=== PATIENT | female | born 1945 | race Caucasian/White ===

== ENCOUNTER 2016-05-29 16:44 | Inpatient (IN) | payer MEDICARE, MEDICAID ==
--- NOTE | 2016-05-29 17:04 | ED Physician Chart ---
Chief Complaint/HPI - Patient Information Date Seen:: 05/29/16 Time Seen:: 17:00 Chief Complaint:: refusal of care, agitation History of Present Illness:: location: general quality: refusing care, agitation severity: moderate duration: several weeks context: pt with history of psychiatric diagnoses. no pain complaint. pt with refusal of care and agitation. yells while in ER and talking to nurse. no pain complaint. no vomiting. no fever. mod factors: none assoc s/s: none hx from pt. Allergies:: Allergies Allergy/AdvReac Type Severity Reaction Status Date / Time No Known Allergies Allergy Verified 10/27/15 20:27 Historian:: EMS, Other (Dr. Gutierrez, Dr Huff) Review:: Nurse's Note Reviewed, EMS run form Reviewed Review of Systems - Review of Systems General/Constitutional: No fever, No edema Skin: No rash Eyes: No diplopia Neck: No stiffness Pulmonary: No wheezing GI: No vomiting, No diarrhea Neurological: No seizure Past Medical History - Past Medical History Past Medical History: HTN, DM, Thyroid disorder, Other (sleep disorder, anxiety , constipation, ) Family History: None Social History: Non Smoker, No Alcohol, No Drug Use, Single, Care Facility Surgical History: None Psychiatricy History: Schizophrenia Medication: Reviewed Family Medical History - Family Member Father History Unknown: Yes Mother History Unknown: Yes Physical Exam - Physical Examination General/Constitutional: Awake, Well-developed, well-nourished (pt is aggressive to nursing staff, initially refusing to listen to staff. ), Alert, No distress, Non-toxic appearing, Ambulatory Head: Atraumatic Eyes: Lids, conjuctiva normal Skin: Nl inspection, No rash, No skin lesions, No ecchymosis, Well hydrated, No lymphadenopathy ENMT: External ears, nose nl, Nasal exam nl, Lips, teeth, gums nl Neck: Nontender, Full ROM w/o pain, No nuchal rigidity Respiratory: Nl effort/Exclusion, Clear to Auscultation, No Wheeze/Rhonchi/Rales Cardio Vascular: RRR, No murmur, gallop, rubs, NL S1 S2 GI: No tenderness/rebounding/guarding, Normal BS's, Nondistended : No CVA tenderness Extremities: No tenderness or effusion, Full ROM, normal strength in all extremities, No edema, Normal digits & nails Neuro/Psych: DTR's symmetric, Normal sensory exam, Normal motor strength, Judgement/insight normal, Mood normal (agitated mood, angry mood. ), Normal gait , No focal deficits Misc: normal gait, Normal back, No paraspinal tenderness Labs/Radiology/EKG Results - Lab Results Results: Laboratory Tests 05/29/16 21:29 WBC 6.1 RBC 4.46 Hgb 13.1 Hct 38.7 MCV 86.8 MCH 29.3 MCHC Differential 33.7 RDW 12.8 Plt Count 211 MPV 9.9 Neutrophils % 61.8 Lymphocytes % 26.6 Monocytes % 7.9 Eosinophils % 2.7 Basophils % 1.0 Assessment - Assessment General Assessment: pt stable while in ER. ED Septic Shock - . Is Septic Shock (SBP<90, OR Lactate>4 mmol\L) present?: No Reassessment (Disposition) - Reassessment Reassessment:: MDM: stable patient with some yelling at staff and agressive behavior. early this am pt was at facility and was yelling at staff amnd being very abusive and so whs sent here to eval as recommended by PCP> Reassessment Condition:: Unchanged - Diagnosis Diagnosis:: acute psychosis medical clearance for mental health - Patient Disposition Discharge/Transfer:: Acute Care w/in this hosp Admitted to:: [facility] Admitting Medical Physician:: Anastacio Gutierrez Admitting Psych Physician:: Ann Marie Huff Condition at Disposition:: Stable
[2016-05-29] MEDS ORDERED: Haloperidol Lactate 5 mg/mL 1mL Vial IM STA (20:00)
[2016-05-29] MEDS ORDERED: Haloperidol Lactate 5 mg/mL 1mL Vial ONE (20:06)
[2016-05-29 21:53] LABS: % LYMPHOCYTES 26.6 % (20.0-50.0)
[2016-05-29 21:55] LABS: % EOSINOPHILS 2.7 % (0.0-5.0); % MONOCYTES 7.9 % (2.0-10.0); % NEUTROPHILS 61.8 % (40.0-80.0); HEMATOCRIT 38.7 % (35.0-45.0); HEMOGLOBIN 13.1 gm/dL (11.7-16.1); MEAN CELL VOLUME 86.8 fl (81-100); MEAN CORPUSCULAR HEMOGLOBIN 29.3 pg (27.0-31.0); MEAN CORPUSCULAR HGB CONC 33.7 pg (28.0-36.0); MEAN PLATELET VOLUME 9.9 fl; NEUTROPHILE ABSOLUTE 3.7 Th/cmm (1.8-8.0); PLATELET COUNT 211 Th/cmm (150-400); RED BLOOD COUNT 4.46 Mil/cmm (3.80-5.20); RED CELL DISTRIBUTION WIDTH 12.8 % (11.5-20.0); WHITE BLOOD COUNT 6.1 Th/cmm (4.8-10.8)
[2016-05-29 22:16] LABS: ALB/GLOB RATIO 1.1 (1.0-1.8); ALKALINE PHOSPHATASE 76 U/L (34-104); ANION GAP 8.1 (7.0-16.0); BILIRUBIN,TOTAL 0.7 mg/dL (0.3-1.0); BUN - UREA NITROGEN 12 mg/dL (7-25); BUN/CREATININE RATIO 17.1; CALCIUM SERUM 9.2 mg/dL (8.6-10.3); CARBON DIOXIDE 25.3 mEq/L (21.0-31.0); CHLORIDE 106 mEq/L (98-107); CREATININE - SERUM 0.7 mg/dL (0.6-1.2); GLUCOSE 121 mg/dL (70-105); POTASSIUM SERUM 3.4 mEq/L (3.5-5.1); SGOT 19 U/L (13-39); SGPT/ALT 12 U/L (7-52); SODIUM SERUM 136 mEq/L (136-145)
[2016-05-29 22:37] LABS: URINE BILIRUBIN NEGATIVE (NEGATIVE); URINE COLOR YELLOW; URINE GLUCOSE (UA) NEGATIVE (NEGATIVE); URINE KETONE TRACE mg/dL (NEGATIVE)
[2016-05-29 22:38] LABS: URINE BLOOD NEGATIVE (NEGATIVE); URINE PH 5.5; URINE PROTEIN NEGATIVE (NEGATIVE); URINE RBC 0-2 /hpf (0-5); URINE UROBILINOGEN 0.2 E.U./dL (0.2 - 1.0)
[2016-05-29 22:39] LABS: URINE BACTERIA OCCASIONAL /hpf (NONE SEEN); URINE EPITHELIAL CELLS FEW /lpf (FEW)
[2016-05-30] MEDS ORDERED: Maalox 30 mL Cup PO PRN (01:06)
[2016-05-30] MEDS ORDERED: Magnesium Hydroxide (MOM) 30 mL UDC PO PRN (01:06)
[2016-05-30 01:56] VITALS: BP 162/87
[2016-05-30] MEDS: INSULIN ASPART SLIDING SCALE 100 UNITS/ML UNIT SUBQ SCH ×4 (06:41→20:35)
[2016-05-30] MEDS: Levothyroxine 0.075 Mg Tab PO SCH (06:49)
[2016-05-30] MEDS: Multivitamin w/ Minerals Tab PO SCH (08:05)
[2016-05-30] MEDS: NYSTATIN 100000 UNITS/GM POWD TP SCH (08:05)
[2016-05-30] MEDS: Aspirin 81mg Chewable Tab PO SCH (08:05)
[2016-05-30] MEDS: Lactulose 10 Gm/15 mL 30mL UDC PO SCH (08:05)
[2016-05-30] MEDS: risperiDONE 4 mg Tab PO SCH (08:05)
[2016-05-30] MEDS ORDERED: Multivitamin Tab PO SCH (09:00)
--- NOTE | 2016-05-30 12:31 | History & Physical ---
IDENTIFYING INFORMATION: The patient is a 70-year-old female. CHIEF COMPLAINT: The patient was referred because of acting agitated, psychotic. The patient herself was a poor historian, unable to engage in any information. The patient is a known case to me. I have been seeing her. She has a history of psychosis, schizophrenia, depression. PAST PSYCHIATRIC HISTORY: She has a history of multiple prior admissions. MEDICAL HISTORY: Hypertension, diabetes mellitus. ALLERGIES: She has no known drug allergies. MEDICATIONS: The patient has been on Haldol. Risperdal replaced recently. FAMILY AND SOCIAL HISTORY: The patient is single, never , no children. She has been staying at [facility] for the last year. No family information is available. The patient continues to refuse to answer. MENTAL STATUS EXAMINATION: The patient looks disheveled, disorganized, internally preoccupied. She has poor eye contact, is unable to participate in a meaningful conversation, acting paranoid. She has not been sleeping or eating well according to the staff. She was unable to tell me anything about suicide, homicide or hallucination, but obviously she appears to be responding to internal stimuli. I was unable to test her memory because of her psychosis. Her insight and judgment impaired. IMPRESSION: AXIS I: Chronic paranoid schizophrenia with acute exacerbation. MEDICAL DIAGNOSIS: As per medical doctor. Her assets she is accepting ____ poor. INITIAL TREATMENT PLAN: The patient will be continued with medication. We will do group therapy, milieu therapy, individual therapy. ESTIMATED LENGTH OF STAY: 3-7 days. DISCHARGE CRITERIA: Decrease in agitation, psychosis after discharge, outpatient treatment. [facility]# [id number]
[2016-05-31] MEDS: Levothyroxine 0.075 Mg Tab PO SCH (06:36)
[2016-05-31] MEDS: INSULIN ASPART SLIDING SCALE 100 UNITS/ML UNIT SUBQ SCH ×4 (06:36→21:07)
[2016-05-31] MEDS: Aspirin 81mg Chewable Tab PO SCH (14:59)
[2016-05-31] MEDS: Lactulose 10 Gm/15 mL 30mL UDC PO SCH (15:00)
[2016-05-31] MEDS: NYSTATIN 100000 UNITS/GM POWD TP SCH (15:00)
[2016-05-31] MEDS: Multivitamin w/ Minerals Tab PO SCH (15:00)
[2016-05-31] MEDS: risperiDONE 4 mg Tab PO SCH (15:00)
--- NOTE | 2016-05-31 20:51 | Progress Notes ---
Case was discussed with staff of the patient, reviewed records. The patient so far has been refusing to take her medication; however, that is how she behaved in her previous admission, had to be . She continues to be unpredictable and impulsive. She was yelling at me when I went to talk to her. She wanted me to be around. She has been unable to make safe plan for self-care or participate in a meaningful conversation or tell me why she is not taking her medication, and so far, there have been no side effects with the medication, no sedation, no nausea, and no extrapyramidal symptoms. We will continue to work with patient in group therapy, milieu therapy, and adjust medication as needed. JOB# [id number]
--- NOTE | 2016-06-01 00:33 | History & Physical ---
REASON FOR ADMISSION: Psychiatric disorder. HISTORY OF PRESENT ILLNESS: This is a 70-year-old female with underlying history of hypothyroidism, diabetes mellitus, hypertension and hyperlipidemia, who was admitted to [facility] for underlying psychiatric illness by Dr Huff. Dr. Huff ____ patient. At the time of evaluation, the patient seems very confused, no reported medical complaints per nursing staff. The patient has been refused per nursing staff. The patient has been refusing all her treatments. PAST MEDICAL HISTORY: As per HPI. PAST SURGICAL HISTORY: No reports of prior surgical history. FAMILY HISTORY: No reports of significant family history. SOCIAL HISTORY: Lives at a nursing facility. No reported alcohol, tobacco, or street drug use. CURRENT MEDICATIONS: On aspirin, benazepril, docusate, lactulose, Ativan, nystatin, Zocor, Ambien, Glucophage, Risperdal. ALLERGIES: No known drug allergies. REVIEW OF SYSTEMS: Difficult to obtain due to the patient's underlying severe confusion. PHYSICAL EXAMINATION: VITAL SIGNS: Temperature 96.8, pulse 77, respirations 20, blood pressure 162/82, oxygen saturation 97% room air. GENERAL APPEARANCE: The patient does not seem to be in acute distress. CARDIOVASCULAR: S1, S2 normal. LUNGS: CTA bilaterally. ABDOMEN: Soft, nontender. EXTREMITIES: No edema. NEUROLOGIC: Awake, but confused, grossly nonfocal. LABORATORY DATA: Available laboratory data: WBC 6.1, hemoglobin 13.0, hematocrit 38.7. Sodium 130, potassium 3.4, sugar 121. AST ____, ALT 12. TSH 2.78. Urine negative; leukocyte esterase, RPR nonreactive. ASSESSMENT: 1. Acute exacerbation of psychiatric disorders. 2. Diabetes mellitus. 3. Hypertension. 4. Hyperlipidemia. 5. Hypothyroidism. 6. Noncompliance. PLAN: The patient is admitted to Geropsych Unit. Further psych eval and management per Dr. Huff. The patient's medical problem has been addressed. Continue current medications. Medication compliance advised. Blood sugar will be followed. Vital signs will be followed. Thank you, Dr Huff, for allowing me to participate in the care of this patient. The patient is medically stable to participate in the Geropsych Unit. JOB# [id number]
[2016-06-01] MEDS: Levothyroxine 0.075 Mg Tab PO SCH (06:32)
[2016-06-01] MEDS: INSULIN ASPART SLIDING SCALE 100 UNITS/ML UNIT SUBQ SCH ×4 (06:32→20:31)
[2016-06-01] MEDS: Aspirin 81mg Chewable Tab PO SCH (08:03)
[2016-06-01] MEDS: Multivitamin w/ Minerals Tab PO SCH (08:04)
[2016-06-01] MEDS: Lactulose 10 Gm/15 mL 30mL UDC PO SCH (08:04)
[2016-06-01] MEDS: NYSTATIN 100000 UNITS/GM POWD TP SCH (08:05)
[2016-06-01] MEDS: risperiDONE 4 mg Tab PO SCH (08:05)
[2016-06-02] MEDS: INSULIN ASPART SLIDING SCALE 100 UNITS/ML UNIT SUBQ SCH ×4 (06:47→21:48)
[2016-06-02] MEDS: Levothyroxine 0.075 Mg Tab PO SCH (06:48)
[2016-06-02] MEDS ORDERED: Haloperidol Lactate 5 mg/mL 1mL Vial ONE (07:42)
[2016-06-02] MEDS ORDERED: Haloperidol Lactate 5 mg/mL 1mL Vial IM STA (07:43)
[2016-06-02] MEDS: NYSTATIN 100000 UNITS/GM POWD TP SCH (08:01)
[2016-06-02] MEDS: Aspirin 81mg Chewable Tab PO SCH (08:01)
[2016-06-02] MEDS: risperiDONE 4 mg Tab PO SCH (08:01)
[2016-06-02] MEDS: Multivitamin w/ Minerals Tab PO SCH (08:01)
[2016-06-02] MEDS: Lactulose 10 Gm/15 mL 30mL UDC PO SCH (08:01)
--- NOTE | 2016-06-02 12:03 | Progress Notes ---
Case was discussed with staff of the patient. I tried to talk to the patient today. She would not answer me. She turned her face the other way. I tried to explain to her the side effects of her medication and if there is any specific reason why she is not taking her medication or if there is any specific medication she would take, but basically, she just would not respond to any of my questions. She is on Risperdal 4 mg daily. I explained to her the side effects so she would not look at me. So, I am not sure if she comprehended. She is still psychotic, unpredictable, and impulsive. She does not have a conservator. I will continue to persuade her. We may have to the patient if she continues to refuse and we will continue to work with the patient in group therapy, milieu therapy, and adjust medications as needed. JOB# [id number]
--- NOTE | 2016-06-03 02:08 | Progress Notes ---
Case was discussed with staff of the patient, reviewed records. The patient has been refusing her medications. Continues to be unpredictable, impulsive, needing redirection. I talked to her in the presence of the medication nurse, ____ about the reason why she is not taking her medication. She told me she does not need to be on medication and that they make her feel bad. I asked her what are the medication that she would take that would help her feel better and she said she does not need to be on any medication. The patient had to be medicated today because of her aggressive behavior and out of control behavior. Continues to be unpredictable, impulsive, needing redirection, agitated, so I did tell her that ____ restlessness, ____ as well as sedation on increased agitation and in that case if she could get something for side effects and I asked the medication nurse to bring her some ____ about the medication and we will continue to work the patient in group therapy and milieu therapy and adjust medication as needed. JOB# [id number]
[2016-06-03] MEDS: INSULIN ASPART SLIDING SCALE 100 UNITS/ML UNIT SUBQ SCH ×3 (06:44→21:02)
[2016-06-03] MEDS: Levothyroxine 0.075 Mg Tab PO SCH (06:44)
[2016-06-03] MEDS: Aspirin 81mg Chewable Tab PO SCH (08:46)
[2016-06-03] MEDS: Lactulose 10 Gm/15 mL 30mL UDC PO SCH (08:46)
[2016-06-03] MEDS: risperiDONE 4 mg Tab PO SCH (08:47)
[2016-06-03] MEDS: NYSTATIN 100000 UNITS/GM POWD TP SCH (08:47)
[2016-06-03] MEDS: Multivitamin w/ Minerals Tab PO SCH (08:47)
[2016-06-04] MEDS: INSULIN ASPART SLIDING SCALE 100 UNITS/ML UNIT SUBQ SCH ×4 (06:29→21:09)
[2016-06-04] MEDS: Levothyroxine 0.075 Mg Tab PO SCH (06:30)
--- NOTE | 2016-06-04 07:57 | Progress Notes ---
Case was discussed with staff of the patient, reviewed records. The patient continues to refuse medications. When I went to her and talked to her about this, she does not want to see my face. She refused to be on medication. She reports she does not need to be on medication. ____ the medication nurse was with me when I talked to her about the side effects yesterday. She said she ____ paper on side effects, so she also can read it as well, but she refused to take it. She reports she does not need it. Continues to have poor insight. Unable to make safe plan for her self-care. Unpredictable, impulsive, paranoid. So, I will be initiating a ____ the patient. We will check milieu therapy, adjust medication as needed. JOB# [id number]
[2016-06-04] MEDS: Lactulose 10 Gm/15 mL 30mL UDC PO SCH (16:15)
[2016-06-04] MEDS: Aspirin 81mg Chewable Tab PO SCH (16:15)
[2016-06-04] MEDS: Multivitamin w/ Minerals Tab PO SCH (16:15)
[2016-06-04] MEDS: NYSTATIN 100000 UNITS/GM POWD TP SCH (16:15)
[2016-06-04] MEDS: risperiDONE 4 mg Tab PO SCH (16:16)
--- NOTE | 2016-06-05 04:13 | Progress Notes ---
Case discussed with staff of the patient, reviewed records. The patient had a ____ seen today. It was upheld by the automatic edger on the ground of grave disability. The patient continues to be irritable, paranoid. She kicked me out of the room today. When I went to try to talk to her again about medications, but she left the room and I had to follow her. She would not talk to me. I did already talked to her many times about the side effects of medication and if there is any medication she would take, she does not believe that she is mentally ill, does not believe she needs to be on medication. She is unpredictable, impulsive, needing redirection and I did file for ____ and we will continue to work with patient in group therapy, milieu therapy, adjust the medication as needed. JOB# [id number]
[2016-06-05] MEDS: Levothyroxine 0.075 Mg Tab PO SCH (06:33)
[2016-06-05] MEDS: INSULIN ASPART SLIDING SCALE 100 UNITS/ML UNIT SUBQ SCH ×4 (06:33→21:25)
[2016-06-05] MEDS: Aspirin 81mg Chewable Tab PO SCH (09:22)
[2016-06-05] MEDS: Multivitamin w/ Minerals Tab PO SCH (09:23)
[2016-06-05] MEDS: Lactulose 10 Gm/15 mL 30mL UDC PO SCH (09:23)
[2016-06-05] MEDS: risperiDONE 4 mg Tab PO SCH (09:24)
[2016-06-05] MEDS: NYSTATIN 100000 UNITS/GM POWD TP SCH (09:24)
--- NOTE | 2016-06-06 00:06 | Progress Notes ---
Case discussed with staff of the patient, reviewed records. The patient continues to be agitated, tried to talk to her about medication again. She reports she does not need to be on medication that she will not take any medications. She would not tell me what medication she will take. I already discussed with her the side effects, told her what they were in the presence of the medication nurse and they did trying to give her a copy of medication side effects; however, she is still having poor insight. Still unpredictable and impulsive. I did apply for release, but we do not have a date yet. They do not call us back with the date and ____ we will continue to ____ the patient take her medication. We will continue to work with the patient in group therapy, milieu therapy, adjust medication as needed. JOB# [id number]
[2016-06-06] MEDS: Levothyroxine 0.075 Mg Tab PO SCH (07:23)
[2016-06-06] MEDS: INSULIN ASPART SLIDING SCALE 100 UNITS/ML UNIT SUBQ SCH ×4 (07:23→21:02)
[2016-06-06] MEDS: Aspirin 81mg Chewable Tab PO SCH (08:09)
[2016-06-06] MEDS: Lactulose 10 Gm/15 mL 30mL UDC PO SCH (08:10)
[2016-06-06] MEDS: risperiDONE 4 mg Tab PO SCH (08:10)
[2016-06-06] MEDS: Multivitamin w/ Minerals Tab PO SCH (08:10)
[2016-06-06] MEDS: NYSTATIN 100000 UNITS/GM POWD TP SCH (08:10)
[2016-06-06] MEDS ORDERED: Haloperidol Lactate 5 mg/mL 1mL Vial IM ONE (10:59)
[2016-06-06] MEDS ORDERED: Haloperidol Lactate 5 mg/mL 1mL Vial ONE (11:04)
--- NOTE | 2016-06-06 21:25 | General Progress Note ---
Subjective - Review of Systems Service Date: 06/06/16 Subjective: patient doing fine no reported concern Objective - Results Result Diagrams: 05/29/16 21:29 05/29/16 21: Recent Labs: Laboratory Last Values WBC 6.1 Th/cmm (4.8-10.8) 05/29/16 21: RBC 4.46 Mil/cmm (3.80-5.20) 05/29/16 21: Hgb 13.1 gm/dL (11.7-16.1) 05/29/16 21: Hct 38.7 % (35.0-45.0) 05/29/16 21: MCV 86.8 fl (81-100) 05/29/16 21: MCH 29.3 pg (27.0-31.0) 05/29/16: MCHC Differential 33.7 pg (28.0-36.0) 05/29/16: RDW 12.8 % (11.5-20.0) 05/29/16: Plt Count 211 Th/cmm (150-400) 05/29/16 21: MPV 9.9 fl 05/29/16 21: Neutrophils % 61.8 % (40.0-80.0) 05/29/16 21: Lymphocytes % 26.6 % (20.0-50.0) 05/29/16 21: Monocytes % 7.9 % (2.0-10.0) 05/29/16: Eosinophils % 2.7 % (0.0-5.0) 05/29/16: Basophils % 1.0 % (0.0-2.0) 05/29/16 21: Sodium 136 mEq/L (136-145) 05/29/16 21: Potassium 3.4 mEq/L (3.5-5.1) L 05/29/16 21: Chloride 106 mEq/L (98-107) 05/29/16 21: Carbon Dioxide 25.3 mEq/L (21.0-31.0) 05/29/16 21: Anion Gap 8.1 (7.0-16.0) 05/29/16 21: BUN 12 mg/dL (7-25) 05/29/16 21:29 Creatinine 0.7 mg/dL (0.6-1.2) 05/29/16 21:29 Est GFR ( Amer) > 60.0 ml/min 05/29/16 21:29 Est GFR (Non-Af Amer) > 60.0 ml/min 05/29/16 21:29 BUN/Creatinine Ratio 17.1 05/29/16 21:29 Glucose 121 mg/dL (70-105) H 05/29/16 21: POC Glucose 95 MG/DL (70 - 105) 06/03/16 17:21 Calcium 9.2 mg/dL (8.6-10.3) 05/29/16 21: Total Bilirubin 0.7 mg/dL (0.3-1.0) 05/29/16 21:29 AST 19 U/L (13-39) 05/29/16 21: ALT 12 U/L (7-52) 05/29/16 21: Alkaline Phosphatase 76 U/L (34-104) 05/29/16 21:29 Total Protein 6.8 gm/dL (6.0-8.3) 05/29/16 21:29 Albumin 3.6 gm/dL (3.7-5.3) L 05/29/16 21: Globulin 3.2 gm/dL 05/29/16 21: Albumin/Globulin Ratio 1.1 (1.0-1.8) 05/29/16 21:29 TSH 2.78 uIU/ml (0.34-5.60) 05/29/16 21:29 Urine Source CLEAN C 05/29/16 22:10 Urine Color YELLOW 05/29/16 22:10 Urine Clarity CLEAR (CLEAR) 05/29/16 22:10 Urine pH 5.5 05/29/16 22:10 Ur Specific [place] 1.40290 (1.005-1.030) L 05/29/16 22:10 Urine Protein NEGATIVE mg/dL (NEGATIVE) 05/29/16 22:10 Urine Glucose (UA) NEGATIVE mg/dL (NEGATIVE) 05/29/16 22:10 Urine Ketones TRACE mg/dL (NEGATIVE) 05/29/16 22:10 Urine Blood NEGATIVE (NEGATIVE) 05/29/16 22:10 Urine Nitrate NEGATIVE (NEGATIVE) 05/29/16 22:10 Urine Bilirubin NEGATIVE (NEGATIVE) 05/29/16 22:10 Urine Urobilinogen 0.2 E.U./dL (0.2 - 1.0) 05/29/16 22:10 Ur Leukocyte Esterase TRACE (NEGATIVE) H 05/29/16 22:10 Urine RBC 0-2 /hpf (0-5) 05/29/16 22:10 Urine WBC 2-5 /hpf (0-5) 05/29/16 22:10 Ur Epithelial Cells FEW /lpf (FEW) 05/29/16 22:10 Urine Bacteria OCCASIONAL /hpf (NONE SEEN) 05/29/16 22:10 RPR NONREACTIVE (NONREACTIVE) 05/29/16 21:29 - Physical Exam Vitals and I&O: Vital Signs Temp 98 F 06/06/16 14:31 Pulse 61 06/06/16 14:31 Resp 20 06/06/16 14:31 BP 133/59 06/06/16 14:31 Pulse Ox 97 06/06/16 14:31 Intake & Output 06/06/16 06/06/16 06/07/16 06:59 18:59 06:59 Intake Total 0 900 Balance 0 900 Intake: Oral 0 900 Other: # Voids 3 4 # Bowel Movements 0 1 Active Medications: Current Medications Acetaminophen (Tylenol) 650 mg PO Q4HR PRN PRN Reason: Pain Stop: 07/29/16 01:05 Al Hydrox/Mg Hydrox/Simethicone (Maalox) 30 ml PO Q4HR PRN PRN Reason: GI DISTRESS Stop: 07/29/16 01:05 Aspirin (Aspirin Chewable) 81 mg PO DAILY [facility] Stop: 07/29/16 08:59 Last Admin: 06/06/16 08:09 Dose: Not Given Benazepril HCl (Lotensin) 20 mg PO DAILY [facility] Stop: 07/29/16 08:59 Last Admin: 06/06/16 08:10 Dose: Not Given Docusate Sodium (Colace) 100 mg PO DAILY [facility] Stop: 07/29/16 08:59 Last Admin: 06/06/16 08:10 Dose: Not Given Insulin Aspart (Novolog Insulin Sliding Scale) 0 units SUBQ ACHS ROBBI PRN Reason: Protocol Stop: 07/29/16 07:29 Last Admin: 01/25/17 21:02 Dose: Not Given Lactulose (Cephulac) 20 gm PO DAILY [facility] Stop: 07/29/16 08:59 Last Admin: 06/06/16 08:10 Dose: Not Given Levothyroxine Sodium (Synthroid) 0.075 mg PO QDAC [facility] Stop: 07/29/16 07:29 Last Admin: 06/06/16 07:23 Dose: Not Given Lorazepam (Ativan) 0.5 mg PO Q4HR PRN; Protocol PRN Reason: Anxiety Stop: 06/29/16 01:05 Metformin HCl (Glucophage) 500 mg PO BIDWM [facility] Stop: 07/29/16 07:59 Last Admin: 06/06/16 17:17 Dose: Not Given Mupirocin (Bactroban Oint) 1 appl NS BID [facility] Stop: 06/07/16 16:59 Last Admin: 06/06/16 16:00 Dose: Not Given Risperidone (Risperdal) 4 mg PO DAILY ROBBI PRN Reason: Protocol Stop: 07/29/16 08:59 Last Admin: 06/06/16 08:10 Dose: Not Given Simvastatin (Zocor) 40 mg PO HS ROBBI PRN Reason: Protocol Stop: 07/29/16 20:59 Last Admin: 06/06/16 21:02 Dose: Not Given Zolpidem Tartrate (Ambien) 5 mg PO HS PRN PRN Reason: Insomnia Stop: 07/29/16 01:05 Cardiovascular: Normal S1, Normal S2 Lungs: Clear to auscultation Abdomen: Soft, no Tender Assessment/Plan - Problem List Patient Problems: All Active Problems Diabetes (Acute) E11.9 HTN (hypertension) (Acute) I10 Psychosis (Acute) F29 - Assessment Assessment: DM II HTN PSYCH DISODER - Plan Plan: Medically stable Continue current treatment Psych managment per psych
--- NOTE | 2016-06-07 02:59 | Progress Notes ---
Case was discussed with staff of the patient, reviewed records. The patient continues to be unpredictable and impulsive. When I talked to her today about the medications that she is not taken and she asked me to get the hell out of here, refused to talk to me. She is refusing her medication in general. We are still waiting for ____. So far we did not get anyone and the staff had to give her emergency medication because of her unpredictable out of control behavior. We will continue to work with the patient in group therapy, milieu therapy and adjust her medication as needed. JOB# [id number]
[2016-06-07] MEDS: INSULIN ASPART SLIDING SCALE 100 UNITS/ML UNIT SUBQ SCH ×4 (08:09→21:00)
[2016-06-07] MEDS: Levothyroxine 0.075 Mg Tab PO SCH (08:09)
[2016-06-07] MEDS: Lactulose 10 Gm/15 mL 30mL UDC PO SCH (08:09)
[2016-06-07] MEDS: Multivitamin w/ Minerals Tab PO SCH (08:09)
[2016-06-07] MEDS: Aspirin 81mg Chewable Tab PO SCH (08:09)
[2016-06-07] MEDS: risperiDONE 4 mg Tab PO SCH (08:10)
[2016-06-07] MEDS: Haloperidol Lactate 5 mg/mL 1mL Vial IM PRN (17:02)
--- NOTE | 2016-06-08 01:48 | Progress Notes ---
Case was discussed with staff of patient, reviewed records. The patient continues to be aggressive, irritable, slammed the door this morning. When I talked to her, she kicked me out, she is asking to leave the room to get the hell out of there, ____I was unable to even carry on a conversation with her because of her aggressive, out of control behavior. She is still psychotic, delusional, unable to make safe plan for her self-care. No side effects with the medication. As far as she is not taking her medication, ____ have a Riese hearing this morning and we will continue outpatient group therapy, milieu therapy, adjust medication as needed. JOB# [id number]
[2016-06-08] MEDS: INSULIN ASPART SLIDING SCALE 100 UNITS/ML UNIT SUBQ SCH ×4 (06:48→20:50)
[2016-06-08] MEDS: Levothyroxine 0.075 Mg Tab PO SCH (06:49)
[2016-06-08] MEDS: Multivitamin w/ Minerals Tab PO SCH (09:00)
[2016-06-08] MEDS: Aspirin 81mg Chewable Tab PO SCH (09:00)
[2016-06-08] MEDS: Lactulose 10 Gm/15 mL 30mL UDC PO SCH (09:00)
[2016-06-08] MEDS: Haloperidol Lactate 5 mg/mL 1mL Vial IM PRN ×2 (09:52→17:17)
--- NOTE | 2016-06-09 02:29 | Progress Notes ---
Case discussed with staff of patient, reviewed records. The patient has been getting injections. She was ____ yesterday. She continues to be ____, easily agitated, irritable, smelly apparently she wiped her bottom with the blanket, needing redirection. I will be increasing Haldol to 4 mg twice a day to be given intramuscularly if she refuses p.o. and we will continue to work with patient in group therapy, milieu therapy, adjust the medication as needed. JOB# [id number]
[2016-06-09] MEDS: INSULIN ASPART SLIDING SCALE 100 UNITS/ML UNIT SUBQ SCH ×4 (06:52→20:30)
[2016-06-09] MEDS: Levothyroxine 0.075 Mg Tab PO SCH (06:53)
[2016-06-09] MEDS: Lactulose 10 Gm/15 mL 30mL UDC PO SCH (08:16)
[2016-06-09] MEDS: Multivitamin w/ Minerals Tab PO SCH (08:16)
[2016-06-09] MEDS: Aspirin 81mg Chewable Tab PO SCH (08:16)
[2016-06-09] MEDS: Haloperidol Lactate 5 mg/mL 1mL Vial IM PRN ×2 (09:21→17:21)
--- NOTE | 2016-06-10 00:03 | Progress Notes ---
SUBJECTIVE: The patient was seen, chart reviewed, and discussed with staff. The patient is currently in the hospital, agitated, psychotic, and known to Dr. Hfuf. The patient is with history of schizophrenia and depression. On [id number], the patient is refusing to speak with me stating, "Don't speak with me. You are not my doctor. Get out." The patient is still noted to be symptomatic. Dr. Huff is noting that the patient remains easily agitated, irritable, not taking care of her ADLs, smearing feces on clothes. The patient is refusing medications intermittently. ASSESSMENT AND PLAN: The patient remains symptomatic, still with psychotic behaviors, agitated, and irritable. PLAN: Continue to titrate medications. Monitor closely for any overt side effects. JOB# [id number]
[2016-06-10] MEDS: Levothyroxine 0.075 Mg Tab PO SCH (06:53)
[2016-06-10] MEDS: INSULIN ASPART SLIDING SCALE 100 UNITS/ML UNIT SUBQ SCH ×4 (06:53→21:20)
[2016-06-10] MEDS: Lactulose 10 Gm/15 mL 30mL UDC PO SCH (09:12)
[2016-06-10] MEDS: Aspirin 81mg Chewable Tab PO SCH (09:12)
[2016-06-10] MEDS: Multivitamin w/ Minerals Tab PO SCH (09:12)
[2016-06-10] MEDS: Haloperidol Lactate 5 mg/mL 1mL Vial IM PRN ×2 (09:28→17:20)
--- NOTE | 2016-06-11 03:32 | Progress Notes ---
SUBJECTIVE: The patient seen, chart reviewed and discussed with staff. The patient is currently in the hospital due to agitation and psychosis, history of schizophrenia and depression. On [id number], the patient is refusing to talk to me, responding to internal stimuli, talking to herself, telling me to "get out." She remains easily agitated, irritable and still psychotic. Medications were reviewed. Labs were reviewed. No overt side effects noted. She remains isolative and withdrawn. ASSESSMENT: The patient remains symptomatic, responding to internal stimuli, psychotic, agitated and irritable. PLAN: Continue to monitor. Continue to encourage medication compliance. JOB# [id number]
[2016-06-11] MEDS: INSULIN ASPART SLIDING SCALE 100 UNITS/ML UNIT SUBQ SCH ×4 (07:05→21:45)
[2016-06-11] MEDS: Levothyroxine 0.075 Mg Tab PO SCH (07:05)
[2016-06-11] MEDS: Aspirin 81mg Chewable Tab PO SCH (09:38)
[2016-06-11] MEDS: Lactulose 10 Gm/15 mL 30mL UDC PO SCH (09:39)
[2016-06-11] MEDS: Multivitamin w/ Minerals Tab PO SCH (09:40)
--- NOTE | 2016-06-12 00:24 | Progress Notes ---
Case was discussed with staff of the patient. The patient is a bit calmer now since she was ____. She has been taking her medication. She is still internally preoccupied, stays to herself. Continues to be however, unpredictable, impulsive, very poor insight, unable to carry on a conversation and make safe plan for self-care. I will be initiating Haldol Decanoate on the patient because of her history of noncompliance and so far, no side effects with the medication, no sedation, no nausea and we will continue to work with the patient in group therapy, milieu therapy, adjust the medication as needed. JOB# [id number]
[2016-06-12] MEDS: INSULIN ASPART SLIDING SCALE 100 UNITS/ML UNIT SUBQ SCH ×4 (07:09→20:34)
[2016-06-12] MEDS: Levothyroxine 0.075 Mg Tab PO SCH (07:09)
[2016-06-12] MEDS: Lactulose 10 Gm/15 mL 30mL UDC PO SCH (09:00)
[2016-06-12] MEDS: Aspirin 81mg Chewable Tab PO SCH (09:31)
[2016-06-12] MEDS: Multivitamin w/ Minerals Tab PO SCH (09:32)
--- NOTE | 2016-06-12 20:39 | General Progress Note ---
Subjective - Review of Systems Service Date: 06/12/16 Subjective: patient doing fine no new concern reported Objective - Results Result Diagrams: 05/29/16 21:29 05/29/16 21: Recent Labs: Laboratory Last Values WBC 6.1 Th/cmm (4.8-10.8) 05/29/16 21: RBC 4.46 Mil/cmm (3.80-5.20) 05/29/16 21: Hgb 13.1 gm/dL (11.7-16.1) 05/29/16 21: Hct 38.7 % (35.0-45.0) 05/29/16 21: MCV 86.8 fl (81-100) 05/29/16 21: MCH 29.3 pg (27.0-31.0) 05/29/16: MCHC Differential 33.7 pg (28.0-36.0) 05/29/16: RDW 12.8 % (11.5-20.0) 05/29/16: Plt Count 211 Th/cmm (150-400) 05/29/16 21: MPV 9.9 fl 05/29/16 21: Neutrophils % 61.8 % (40.0-80.0) 05/29/16 21: Lymphocytes % 26.6 % (20.0-50.0) 05/29/16 21: Monocytes % 7.9 % (2.0-10.0) 05/29/16: Eosinophils % 2.7 % (0.0-5.0) 05/29/16: Basophils % 1.0 % (0.0-2.0) 05/29/16 21: Sodium 136 mEq/L (136-145) 05/29/16 21: Potassium 3.4 mEq/L (3.5-5.1) L 05/29/16: Chloride 106 mEq/L (98-107) 05/29/16 21: Carbon Dioxide 25.3 mEq/L (21.0-31.0) 05/29/16: Anion Gap 8.1 (7.0-16.0) 05/29/16 21: BUN 12 mg/dL (7-25) 05/29/16 21:29 Creatinine 0.7 mg/dL (0.6-1.2) 05/29/16 21:29 Est GFR ( Amer) > 60.0 ml/min 05/29/16 21:29 Est GFR (Non-Af Amer) > 60.0 ml/min 05/29/16 21:29 BUN/Creatinine Ratio 17.1 05/29/16 21:29 Glucose 121 mg/dL (70-105) H 05/29/16 21:29 POC Glucose 174 MG/DL (70 - 105) H 06/12/16 20:06 Calcium 9.2 mg/dL (8.6-10.3) 05/29/16 21:29 Total Bilirubin 0.7 mg/dL (0.3-1.0) 05/29/16 21:29 AST 19 U/L (13-39) 05/29/16 21:29 ALT 12 U/L (7-52) 05/29/16 21:29 Alkaline Phosphatase 76 U/L (34-104) 05/29/16 21:29 Total Protein 6.8 gm/dL (6.0-8.3) 05/29/16 21:29 Albumin 3.6 gm/dL (3.7-5.3) L 05/29/16 21:29 Globulin 3.2 gm/dL 05/29/16 21:29 Albumin/Globulin Ratio 1.1 (1.0-1.8) 05/29/16 21:29 TSH 2.78 uIU/ml (0.34-5.60) 05/29/16 21:29 Urine Source CLEAN C 05/29/16 22:10 Urine Color YELLOW 05/29/16 22:10 Urine Clarity CLEAR (CLEAR) 05/29/16 22:10 Urine pH 5.5 05/29/16 22:10 Ur Specific [place] 1.10670 (1.005-1.030) L 05/29/16 22:10 Urine Protein NEGATIVE mg/dL (NEGATIVE) 05/29/16 22:10 Urine Glucose (UA) NEGATIVE mg/dL (NEGATIVE) 05/29/16 22:10 Urine Ketones TRACE mg/dL (NEGATIVE) 05/29/16 22:10 Urine Blood NEGATIVE (NEGATIVE) 05/29/16 22:10 Urine Nitrate NEGATIVE (NEGATIVE) 05/29/16 22:10 Urine Bilirubin NEGATIVE (NEGATIVE) 05/29/16 22:10 Urine Urobilinogen 0.2 E.U./dL (0.2 - 1.0) 05/29/16 22:10 Ur Leukocyte Esterase TRACE (NEGATIVE) H 05/29/16 22:10 Urine RBC 0-2 /hpf (0-5) 05/29/16 22:10 Urine WBC 2-5 /hpf (0-5) 05/29/16 22:10 Ur Epithelial Cells FEW /lpf (FEW) 05/29/16 22:10 Urine Bacteria OCCASIONAL /hpf (NONE SEEN) 05/29/16 22:10 RPR NONREACTIVE (NONREACTIVE) 05/29/16 21:29 - Physical Exam Vitals and I&O: Vital Signs Temp 98.3 F 06/12/16 20:15 Pulse 73 06/12/16 20:15 Resp 18 06/12/16 20:15 BP 142/78 06/12/16 20:15 Pulse Ox 97 06/12/16 20:15 Intake & Output 06/12/16 06/12/16 06/13/16 06:59 18:59 06:59 Intake Total 120 1100 240 Balance 120 1100 240 Intake: Oral 120 1100 240 Other: # Voids 1 4 1 # Bowel Movements 0 1 Active Medications: Current Medications Acetaminophen (Tylenol) 650 mg PO Q4HR PRN PRN Reason: Pain Stop: 07/29/16 01:05 Al Hydrox/Mg Hydrox/Simethicone (Maalox) 30 ml PO Q4HR PRN PRN Reason: GI DISTRESS Stop: 07/29/16 01:05 Aspirin (Aspirin Chewable) 81 mg PO DAILY RBOBI Stop: 07/29/16 08:59 Last Admin: 06/12/16 09:31 Dose: 81 mg Benazepril HCl (Lotensin) 20 mg PO DAILY ROBBI Stop: 07/29/16 08:59 Last Admin: 06/12/16 09:32 Dose: 20 mg Docusate Sodium (Colace) 100 mg PO DAILY ROBBI Stop: 07/29/16 08:59 Last Admin: 06/12/16 09:31 Dose: 100 mg Haloperidol (Haldol) 4 mg PO BID ROBBI PRN Reason: Protocol Stop: 08/07/16 16:59 Last Admin: 06/12/16 16:24 Dose: 4 mg Haloperidol Decanoate (Haldol Dec) 25 mg IM QMONTH ROBBI PRN Reason: Protocol Stop: 08/10/16 13:59 Last Admin: 06/11/16 13:52 Dose: 25 mg Haloperidol Lactate (Haldol) 4 mg IM BID PRN PRN Reason: Agitation Stop: 08/06/16 16:08 Last Admin: 06/10/16 17:20 Dose: 4 mg Insulin Aspart (Novolog Insulin Sliding Scale) 0 units SUBQ ACHS ROBBI PRN Reason: Protocol Stop: 07/29/16 07:29 Last Admin: 06/12/16 17:18 Dose: Not Given Lactulose (Cephulac) 20 gm PO DAILY ROBBI Stop: 07/29/16 08:59 Last Admin: 06/12/16 09:00 Dose: 20 gm Levothyroxine Sodium (Synthroid) 0.075 mg PO QDAC ROBBI Stop: 07/29/16 07:29 Last Admin: 06/12/16 07:09 Dose: Not Given Lorazepam (Ativan) 0.5 mg PO Q4HR PRN; Protocol PRN Reason: Anxiety Stop: 06/29/16 01:05 Metformin HCl (Glucophage) 500 mg PO BIDWM ROBBI Stop: 07/29/16 07:59 Last Admin: 06/12/16 17:24 Dose: 500 mg Simvastatin (Zocor) 40 mg PO HS ROBBI PRN Reason: Protocol Stop: 07/29/16 20:59 Last Admin: 06/11/16 21:01 Dose: 40 mg Zolpidem Tartrate (Ambien) 5 mg PO HS PRN PRN Reason: Insomnia Stop: 07/29/16 01:05 Cardiovascular: Normal S1, Normal S2 Lungs: Clear to auscultation Abdomen: Soft, no Tender Assessment/Plan - Problem List Patient Problems: All Active Problems Diabetes (Acute) E11.9 HTN (hypertension) (Acute) I10 Psychosis (Acute) F29 - Assessment Assessment: DM II HTN PSYCH DISODER - Plan Plan: Medically stable Continue current treatment Psych managment per psych
--- NOTE | 2016-06-13 02:50 | Progress Notes ---
Case was discussed with staff of the patient, reviewed records. The patient continues to be irritable and angry when I went to her room today. She asked me to leave. She says she does not like to see me. She continues to have poor insight, unpredictable and impulsive, needing redirection. I did give her the Haldol Decanoate yesterday and so far no side effects with the medication, no sedation, no nausea and no extrapyramidal symptoms. We will continue to work with the patient in group therapy, milieu therapy and adjust medication as needed. JOB# [id number]
[2016-06-13] MEDS: Levothyroxine 0.075 Mg Tab PO SCH (06:38)
[2016-06-13] MEDS: INSULIN ASPART SLIDING SCALE 100 UNITS/ML UNIT SUBQ SCH ×4 (06:39→20:54)
[2016-06-13] MEDS: Multivitamin w/ Minerals Tab PO SCH (08:16)
[2016-06-13] MEDS: Lactulose 10 Gm/15 mL 30mL UDC PO SCH (08:18)
[2016-06-13] MEDS: Aspirin 81mg Chewable Tab PO SCH (08:18)
--- NOTE | 2016-06-14 02:21 | Progress Notes ---
Case was discussed with staff of the patient, reviewed records. The patient continues to be irritable; however, she did get the Haldol Decanoate yesterday. She continues to isolate herself. Continues to be unable to make safe plan for her self-care or participate in meaningful conversation. She is sleeping, eating well and feeding herself. No side effects with the medication, no sedation, no nausea and no extrapyramidal symptoms. We will continue to work with the patient in group therapy, milieu therapy, adjust the medication as needed. She does have positive MRSA screen, was started on Bactroban and urinalysis showed trace of leukocytic esterase. TSH is within normal range. She has low potassium, high blood sugar and low albumin. The rest of the chemistry panel within normal range. CBC within normal range. I will be deferring decisions on those to the medical doctor, Dr. Schreiber and we will continue working the patient in group therapy, milieu therapy and adjust medication as needed. JOB# [id number]
[2016-06-14] MEDS: INSULIN ASPART SLIDING SCALE 100 UNITS/ML UNIT SUBQ SCH ×4 (06:36→21:19)
[2016-06-14] MEDS: Levothyroxine 0.075 Mg Tab PO SCH (06:36)
[2016-06-14] MEDS: Lactulose 10 Gm/15 mL 30mL UDC PO SCH (08:59)
[2016-06-14] MEDS: Aspirin 81mg Chewable Tab PO SCH (08:59)
[2016-06-14] MEDS: Multivitamin w/ Minerals Tab PO SCH (08:59)
[2016-06-14] MEDS: Haloperidol Lactate 5 mg/mL 1mL Vial IM PRN (09:07)
--- NOTE | 2016-06-15 02:16 | Progress Notes ---
Case was discussed with staff of the patient, reviewed records. The patient continues to be on Haldol. She has to be medicated, ____ well. She refuses medications as she is ____. She continues to be somewhat hostile, unpredictable, impulsive and needing redirection. I did initiate her Haldol Decanoate and so far no side effects with the medication. No sedation, no nausea and no extrapyramidal symptoms and she is still unpredictable, impulsive and hostile. We will continue to work with the patient in group therapy, milieu therapy and adjust medications as needed. JOB# [id number]
[2016-06-15] MEDS: Levothyroxine 0.075 Mg Tab PO SCH (06:52)
[2016-06-15] MEDS: INSULIN ASPART SLIDING SCALE 100 UNITS/ML UNIT SUBQ SCH ×4 (06:53→20:49)
[2016-06-15] MEDS: Aspirin 81mg Chewable Tab PO SCH (08:42)
[2016-06-15] MEDS: Multivitamin w/ Minerals Tab PO SCH (08:43)
[2016-06-15] MEDS: Lactulose 10 Gm/15 mL 30mL UDC PO SCH (08:43)
--- NOTE | 2016-06-15 20:24 | Progress Notes ---
Case was discussed with staff of the patient. The patient continues to be irritable and hostile. Continues to need redirection. Continues to have poor insight. Unable to make safe plan for self-care. She has been . Unable to respond to redirection well. She is paranoid. No side effects with the medication, no sedation, no nausea, and we will continue to work with the patient in group therapy, milieu therapy, and adjust the medication as needed. JOB# [id number]
[2016-06-16] MEDS: Levothyroxine 0.075 Mg Tab PO SCH (06:38)
[2016-06-16] MEDS: INSULIN ASPART SLIDING SCALE 100 UNITS/ML UNIT SUBQ SCH ×4 (06:39→20:06)
[2016-06-16] MEDS: Aspirin 81mg Chewable Tab PO SCH (09:02)
[2016-06-16] MEDS: Multivitamin w/ Minerals Tab PO SCH (09:02)
[2016-06-16] MEDS: Lactulose 10 Gm/15 mL 30mL UDC PO SCH (09:05)
--- NOTE | 2016-06-17 05:00 | Progress Notes ---
Dr. Kirk is covering for Dr. Huff. SUBJECTIVE: Chart reviewed and the patient interviewed. Also, discussed the patient's condition with the staff and reviewed records and labs. The patient continued to be isolative and withdrawn and does not want to leave her room. The patient also is sitting on the edge of the bed and does not want to get out or to follow any of staff directions. The patient also is severely prejudiced and she is refusing to deal with any of the staff that is ____ and openly making remarks that are prejudice. The patient also has been paranoid and has been in angry and in irritable mood. The patient also has been calling people that are ____ names. The patient was placed on 30 days' hold yesterday because of her irritability and paranoia. Otherwise, the patient still can be dangerous to others with her paranoia and irritability. ASSESSMENT: The patient is still psychotic. TREATMENT PLAN: We will continue monitoring her behavior and her condition closely. Also, we will increase Haldol to 7.5 mg twice a day. Hopefully, the patient will comply with taking meds. Also, we will continue to work on her irritability and her anger and we will continue to follow up closely. JOB# [id number]
[2016-06-17] MEDS: INSULIN ASPART SLIDING SCALE 100 UNITS/ML UNIT SUBQ SCH ×4 (06:36→20:09)
[2016-06-17] MEDS: Levothyroxine 0.075 Mg Tab PO SCH (06:51)
[2016-06-17] MEDS: Aspirin 81mg Chewable Tab PO SCH (09:22)
[2016-06-17] MEDS: Lactulose 10 Gm/15 mL 30mL UDC PO SCH (09:23)
[2016-06-17] MEDS: Multivitamin w/ Minerals Tab PO SCH (09:23)
--- NOTE | 2016-06-18 01:36 | Progress Notes ---
SUBJECTIVE: Chart reviewed and the patient interviewed. Also discussed the patient's condition with the staff and reviewed records and labs. The patient continued to show the same behavior like yesterday and she still is sitting on the edge of her bed and is angry and is suspicious. The patient also is still prejudice and has ____ language and uncooperative with non- staff. The patient also is still refusing to get out of her room. She also refusing medications and would not talk ____ about taking medications. She started yelling and screaming and was unable to give me any coherent reasons for why she is refusing medications. She also was becoming more agitated. ASSESSMENT: The patient is still psychotic. TREATMENT PLAN: We will continue to monitor her behavior and her condition closely. Also, continue to work on her compliance towards medications as well as discharge plans. JOB# [id number]
[2016-06-18] MEDS: INSULIN ASPART SLIDING SCALE 100 UNITS/ML UNIT SUBQ SCH ×2 (06:43→12:03)
[2016-06-18] MEDS: Levothyroxine 0.075 Mg Tab PO SCH (06:44)
[2016-06-18] MEDS: Lactulose 10 Gm/15 mL 30mL UDC PO SCH (09:22)
[2016-06-18] MEDS: Multivitamin w/ Minerals Tab PO SCH (09:23)
[2016-06-18] MEDS: Aspirin 81mg Chewable Tab PO SCH (09:23)
--- NOTE | 2016-06-18 19:25 | Discharge Summary ---
IDENTIFYING INFORMATION: The patient is a 71-year-old female. CHIEF COMPLAINT: Referred from [place] because of agitated behavior, psychosis. The patient was a poor historian, unable to engage in any conversation. She is a well known patient. We have been seeing her at [place]. She suffers with schizophrenia, depression with a hp multiple prior admissions and she has a history of being ____ before. She has a history of diabetes mellitus and hypertension. COURSE IN THE HOSPITAL: The patient was started back on her medication, Risperdal. She was continued with the same dose, which was 4 mg daily; however, the patient continued to refuse her medications, so ____ started her on Haldol 2 mg twice a day that was increased over the course of her stay to 7.5 mg twice a day and last increased by Dr. Kirk also given Haldol decanoate injection on 06/11/2016. The patient also was continued with her other medication, which was aspirin, Lotensin and she was given Haldol intramuscular 4 mg twice a day, if she refuses p.o. medication, insulin, also lactulose, levothyroxine, multivitamin, simvastatin, and metformin. The patient progressively got better. She started taking her medication on her own. So, we felt she could be discharged to a lesser level of care. She was not acting anyway dangerous or out of control. So we felt she could be managed at [facility]. FINAL DIAGNOSIS: AXIS I: Chronic paranoid schizophrenia with acute exacerbation. MEDICAL DIAGNOSES: Hypertension, diabetes mellitus. The patient will be going back to [place]. I will follow up with the patient there. The patient will follow up with primary care physician there. EXPECTED OUTCOME: Stable if the patient complies. JOB# [id number]
== END 2016-06-18 16:00 | DRG 885 ==
LOC: ER 16:44 → GERO 05-30 00:20
PROVIDERS: ADMIT Psychiatry & Neurology Psychiatry; ATTEND Psychiatry & Neurology Psychiatry
DX: F20.0 Paranoid schizophrenia (principal); E11.9 Type 2 diabetes mellitus without complications; I10 Essential (primary) hypertension; F41.9 Anxiety disorder, unspecified; F29 Unspecified psychosis not due to a substance or known physiological condition; E03.9 Hypothyroidism, unspecified; E78.5 Hyperlipidemia, unspecified; Z79.82 Long term (current) use of aspirin; Z91.14 Patient's other noncompliance with medication regimen
CPT/HCPCS: 36415-UA; 80053-TC; 81001-TC; 82948-90; 84443-TC; 85025-TC; 86592-TC; 93005; J1200; J1630; J1631; J1815; J2060; Z7610

== ENCOUNTER 2016-12-10 12:46 | Inpatient (IN) | payer MEDICARE, MEDICAID ==
--- NOTE | 2016-12-10 13:12 | ED Physician Chart ---
Chief Complaint/HPI - Patient Information Date Seen:: 12/10/16 Time Seen:: 13:00 Chief Complaint:: PSYCHOSIS History of Present Illness:: THIS IS A 71 YO FEMALE SENT HERE FROM THE HALFWAY FOR A PSYCH EVALUATION AND TREATMENT. THE PATIENT IS NOT COOPERATIVE, NOT ANSWERING QUESTIONS AND CONFUSED AT TIMES. SHE IS DIABETIC WITH HYPOTHYROIDISM AND ELEVATED LIPIDS. SHE REFUSES ALL HER TREATMENTS. Allergies:: Allergies Allergy/AdvReac Type Severity Reaction Status Date / Time No Known Allergies Allergy Verified 10/27/15 20:27 Vitals:: Vital Signs - 8 hr 12/10/16 12:55 Temp 98.1 F HR 79 RR 18 BP 145/73 O2 Sat % 96 Historian:: Medical Records Review:: Nurse's Note Reviewed, Transfer documents Reviewed Review of Systems - Review of Systems General/Constitutional: No fever, No chills, No weight loss, No weakness, No diaphoresis, No edema, No loss of appetite, Other (SHE REFUSES TO ANSWER ANY QUESTIONS.) Skin: No skin lesions, No rash, No bruising Head: No headache, No light-headedness Eyes: No loss of vision, No pain, No diplopia ENT: No earache, No nasal drainage, No sore throat, No tinnitus Neck: No neck pain, No swelling, No thyromegaly, No stiffness, No mass noted Cardio Vascular: No chest pain, No palpitations, No PND, No orthopnea, No edema Pulmonary: No SOB, No cough, No sputum, No wheezing GI: No nausea, No vomiting, No diarrhea, No pain, No melena, No hematochezia, No constipation, No hematemesis G/U: No dysuria, No frequency, No hematuria Musculoskeletal: No bone or joint pain, No back pain, No muscle pain Endocrine: No polyuria, No polydipsia Psychiatric: No prior psych history, No depression, No anxiety, No suicidal ideation Hematopoietic: No bruising, No lymphadenopathy Allergic/Immuno: No urticaria, No angioedema Neurological: No syncope, No focal symptoms, No weakness, No paresthesia, No headache, No seizure, No dizziness, No confusion, No vertigo Past Medical History - Past Medical History Past Medical History: HTN, DM, Thyroid disorder, Dementia Family History: None Social History: Non Smoker, No Alcohol, No Drug Use, Care Facility Surgical History: None Psychiatricy History: Schizophrenia, Bipolar Medication: Reviewed Family Medical History - Family Member Father History Unknown: Yes Ethnicity: Unknown Living Status: Unknown Hx Family Cancer: (Unknown) Hx Family Coronary Artery Disease: (Unknown) Hx Family Congestive Heart Failure: (Unknown) Hx Family Hypertension: (Unknown) Hx Family Stroke: (Unknown) Hx Family Diabetes: (Unknown) Hx Family Seizures: (Unknown) Hx Family Dementia: (Unknown) Hx Family AIDS: (Unknown) Hx Family COPD: (Unknown) Hx Family Hepatitis: (Unknown) Hx Family Psychiatric Problems: (Unknown) Hx Family Tuberculosis: (Unknown) Mother History Unknown: Yes Ethnicity: Unknown Living Status: Unknown Hx Family Cancer: (Unknown) Hx Family Coronary Artery Disease: (Unknown) Hx Family Congestive Heart Failure: (Unknown) Hx Family Hypertension: (Unknown) Hx Family Stroke: (Unknown) Hx Family Diabetes: (Unknown) Hx Family Seizures: (Unknown) Hx Family Dementia: (Unknown) Hx Family AIDS: (Unknown) Hx Family COPD: (Unknown) Hx Family Hepatitis: (Unknown) Hx Family Psychiatric Problems: (Unknown) Hx Family Tuberculosis: (Unknown) Physical Exam - Physical Examination General/Constitutional: Awake, Well-developed, well-nourished, Alert, No distress, GCS 15, Non-toxic appearing, Ambulatory Other Gen/Cons comments:: REFUSE TO COOPERATE Head: Atraumatic Eyes: Lids, conjuctiva normal, PERRL, EOMI Skin: Nl inspection, No rash, No skin lesions, No ecchymosis, Well hydrated, No lymphadenopathy ENMT: External ears, nose nl, Nasal exam nl, Lips, teeth, gums nl Neck: Nontender, Full ROM w/o pain, No JVD, No nuchal rigidity, No bruit, No mass, No stridor Respiratory: Nl effort/Exclusion, Clear to Auscultation, No Wheeze/Rhonchi/Rales Cardio Vascular: RRR, No murmur, gallop, rubs, NL S1 S2 GI: No tenderness/rebounding/guarding, No organomegaly, No hernia, Normal BS's, Nondistended, No mass/bruits, No McBurney tenderness : No CVA tenderness Extremities: No tenderness or effusion, Full ROM, normal strength in all extremities, No edema, Normal digits & nails Neuro/Psych: Alert/oriented, DTR's symmetric, Normal sensory exam, Normal motor strength, Normal gait, No focal deficits Other Neuro/Psych comments:: DEPRESSED MOOD Misc: normal gait, Normal back, No paraspinal tenderness Labs/Radiology/EKG Results - Lab Results Results: Abnormal Lab Results 12/10/16 12/10/16 13:00 13:00 WBC 6.5 RBC 4.56 Hgb 14.1 Hct 42.3 MCV 92.7 MCH 30.9 MCHC Differential 33.3 RDW 12.8 Plt Count 252 MPV 8.1 Neutrophils % 74.1 Lymphocytes % 15.4 L Monocytes % 8.0 Eosinophils % 2.5 Basophils % 0.0 Sodium 135 L Potassium 3.8 Chloride 101 Carbon Dioxide 29.5 Anion Gap 8.3 BUN 23 Creatinine 0.8 Est GFR ( Amer) > 60.0 Est GFR (Non-Af Amer) > 60.0 BUN/Creatinine Ratio 28.8 Glucose 134 H Calcium 9.7 Total Bilirubin 0.4 AST 16 ALT 14 Alkaline Phosphatase 89 Total Protein 7.4 Albumin 4.2 Globulin 3.2 Albumin/Globulin Ratio 1.3 - Radiology Results Results: chest x-ray = nad - EKG Interpretations EKG Time:: 12:56 Rate & Rhythm: 74 SINUS [place]: LEFT Assessment - Assessment General Assessment: psychos ED Septic Shock - . Is Septic Shock (SBP<90, OR Lactate>4 mmol\L) present?: No - <6hrs of presentation: Vital Signs: Vital Signs - 8 hr 12/10/16 12:55 Temp 98.1 F HR 79 RR 18 BP 145/73 O2 Sat % 96 Reassessment (Disposition) - Reassessment Reassessment Condition:: Unchanged - Diagnosis Diagnosis:: psychosis - Aftercare/Follow up Instructions Notes:: THIS PATIENT IS CLEARED FOR PSYCHOSIS - Patient Disposition Discharge/Transfer:: Acute Care w/in this hosp Admitting Medical Physician:: Smith Gutierrez Admitting Psych Physician:: Ann Marie Huff Condition at Disposition:: Unchanged ED Discharge Plan - Patient Disposition Admit/Discharge/Transfer: Acute Care w/in this hosp Condition at Disposition: Unchanged Instructions: Psychosis
[2016-12-10 13:13] LABS: % EOSINOPHILS 2.5 % (0.0-5.0); % LYMPHOCYTES 15.4 % (20.0-50.0); % NEUTROPHILS 74.1 % (40.0-80.0); HEMATOCRIT 42.3 % (35.0-45.0); HEMOGLOBIN 14.1 gm/dL (11.7-16.1); MEAN CELL VOLUME 92.7 fl (81-100); MEAN CORPUSCULAR HEMOGLOBIN 30.9 pg (27.0-31.0); MEAN CORPUSCULAR HGB CONC 33.3 pg (28.0-36.0); MEAN PLATELET VOLUME 8.1 fl; NEUTROPHILE ABSOLUTE 4.8 Th/cmm (1.8-8.0); PLATELET COUNT 252 Th/cmm (150-400); RED BLOOD COUNT 4.56 Mil/cmm (3.80-5.20); RED CELL DISTRIBUTION WIDTH 12.8 % (11.5-20.0); WHITE BLOOD COUNT 6.5 Th/cmm (4.8-10.8)
[2016-12-10 13:32] LABS: ALB/GLOB RATIO 1.3 (1.0-1.8); ALKALINE PHOSPHATASE 89 U/L (34-104); ANION GAP 8.3 (7.0-16.0); BILIRUBIN,TOTAL 0.4 mg/dL (0.3-1.0); BUN - UREA NITROGEN 23 mg/dL (7-25); BUN/CREATININE RATIO 28.8; CALCIUM SERUM 9.7 mg/dL (8.6-10.3); CARBON DIOXIDE 29.5 mEq/L (21.0-31.0); CHLORIDE 101 mEq/L (98-107); CREATININE - SERUM 0.8 mg/dL (0.6-1.2); GLUCOSE 134 mg/dL (70-105); POTASSIUM SERUM 3.8 mEq/L (3.5-5.1); SGOT 16 U/L (13-39); SGPT/ALT 14 U/L (7-52); SODIUM SERUM 135 mEq/L (136-145)
--- NOTE | 2016-12-10 15:03 | Psychosocial Evaluation ---
DATE OF SERVICE: 12/10/2016 IDENTIFYING INFORMATION: The patient is a 71-year-old female. CHIEF COMPLAINT: No answer. HISTORY OF PRESENT ILLNESS: The patient was sent from [place] as the patient has been acting out, refusing her medication, agitated, hard to redirect. She almost hit the nurse in the Emergency Room. She has been unpredictable, impulsive. When I talked to her, she was not ____ give me any answer. PAST PSYCHIATRIC HISTORY: The patient ____ multiple admission for similar reason. She has been ____ many times in the past. MEDICAL HISTORY: Refer to the medical doctor. MEDICATIONS: The patient was on Haldol Decanoate and oral Haldol. ALLERGIES: She has no known drug allergies. FAMILY AND SOCIAL HISTORY: Refer to old records. The patient is unable to give information. MENTAL STATUS EXAMINATION: The patient is appropriately dressed, not well groomed. Her affect is constricted. Her thoughts are concrete and fragmented and unable to engage in any meaningful conversation. She has been unable to give information regarding sleep or appetite. Unable to participate in ____. Unable to answer question about hallucination, but she appears to be responding to internal stimuli. Very poor insight. Unable to contract with safety or make safe plan for self-care. Unable to test memory and ____ answer questions regarding suicide, homicide or hallucinations. No information regarding her sleep or appetite. Her insight and judgment is impaired. IMPRESSION: AXIS I: Chronic paranoid schizophrenia. MEDICAL DIAGNOSES: Deferred to the medical doctor. Her assets, she is accepting treatment. Negative poor coping skills. INITIAL TREATMENT PLAN: The patient will be started back on Haldol, do group therapy, milieu therapy, individual therapy. ESTIMATED LENGTH OF STAY: 3-7 days. DISCHARGE CRITERIA: ____ agitation, psychosis, after discharge ____. JOB# [id number]
[2016-12-10 15:17] VITALS: BP 150/76
[2016-12-10] MEDS ORDERED: Magnesium Hydroxide (MOM) 30 mL UDC PO PRN (15:37)
--- NOTE | 2016-12-10 15:40 | Diagnostic Imaging Report ---
Portable chest x-ray History: Shortness of breath Allowing for portable technique the heart size is normal. No focal pulmonary parenchymal processes. No hilar or mediastinal abnormalities. Scoliosis and degenerative changes seen to the spine. Impression: No acute abnormalities.
[2016-12-10] MEDS: INSULIN ASPART SLIDING SCALE 100 UNITS/ML UNIT SUBQ SCH ×2 (17:48→21:57)
[2016-12-11] MEDS: Levothyroxine 0.075 Mg Tab PO SCH (06:30)
[2016-12-11] MEDS: INSULIN ASPART SLIDING SCALE 100 UNITS/ML UNIT SUBQ SCH ×4 (06:30→20:23)
[2016-12-11] MEDS: Aspirin 81mg Chewable Tab PO SCH (08:34)
[2016-12-11] MEDS: Multivitamin w/ Minerals Tab PO SCH (08:35)
--- NOTE | 2016-12-11 21:20 | History & Physical ---
ADMIT DATE: 12/10/2016 REASON FOR ADMISSION: Psychiatric disorder. HISTORY OF PRESENT ILLNESS: This is a 71-year-old female with underlying history of hypertension, diabetes, hypothyroidism, hyperlipidemia, mental health disorders admitted to the [facility] for evaluation of underlying psychiatric illnesses by Dr. Huff. Dr. Huff requested medical H and P on this patient. At the time of evaluation the patient was awake, but very confused, did not communicate with me at all. PAST MEDICAL HISTORY: Per HPI. PAST SURGICAL HISTORY: None reported. SOCIAL HISTORY: [facility]. No reported alcohol, tobacco or street drug use. CURRENT MEDICATIONS: As per medication reconciliation. ALLERGIES: No drug allergies reported. REVIEW OF SYSTEMS: Unobtainable due to the patient is poorly communicating. PHYSICAL EXAMINATION: VITAL SIGNS: Temperature 97.8, pulse 70, respirations 20, blood pressure 129/70, oxygen 96% on room air. Pain scale 0/10. Physical exam, this patient refused. ASSESSMENT: 1. Mental health disorder. 2. Hypertension. 3. Diabetes mellitus. 4. Hyperlipidemia. 5. Hypothyroidism. PLAN: Psych evaluation and management per psychiatrist. Continue the patient on aspirin, Lotensin, insulin sliding scale, metformin, Synthroid, simvastatin. Fall precaution Patient is medically stable to participate in activity at [facility] unit. Thank you, Dr. Huff, for allowing me to participate in the care of this patient. JOB# [id number] NICKI
--- NOTE | 2016-12-11 22:52 | Progress Notes ---
DATE: 12/11/2016 Case was discussed with staff of the patient, reviewed records. The patient was acting today like catatonic. She is standing, would not sit down, would not eat, would not answer any of my questions, still unpredictable, impulsive, unable to make safe plan for self-care. She has been refusing Accu-Cheks and refusing to take medication; however, I did order the Haldol Decanoate yesterday as she did take it before and I have also initiated oral Haldol. So far I am not sure if she will be compliant with it. If not, then we will have to I believe that the patient is hard to tell about any side effect . We will continue to work with the patient in group therapy, milieu therapy, and adjust the medication as needed. JOB# [id number]
--- NOTE | 2016-12-11 23:31 | Admit Criteria Form ---
Admit Criteria Forms - Admit Criteria Diagnosis: PSYCHIATRIC DISORDERS (Place 'X' for any and all applicable criteria): Ongoing inpatient care may be needed for 1 or more of the following(1)(2)(3)(4)( 6)(7)(8): [ ]I. Danger to self or others not manageable at lower level of care. [ ]II. Grave disability (eg, inability to perform self care necessary at lower level of care) [ ]III. Agitation or inappropriate behavior interfering with care for primary condition (eg, attempting to discontinue lines or drains prematurely, unable to cooperate with respiratory care) [X ]IV. Severe disability or disorder indicated by ALL of the following: [X ]a) Severe behavioral health disorder-related symptoms or condition indicated by 1 or more of the following: [ ]i) Severe problem with cognition, memory, judgment, or impulse control [X ]ii) Severe clinical manifestations (eg, hallucinations , delusions, other acute psychotic symptoms, jess, extreme agitation or anxiety) [X ]b) Patient management at lower level of care is not feasible until acute intervention or modification is initiated. Extended stay beyond goal length of stay for the primary condition may be needed until ALLof the following are present(1)(2)(3)(4)(7)52)(23): [ ]a) Danger to self or others is absent or manageable at lower level of care [ ]b) Behavior crisis management, including physical or chemical restraints, is required and is not available at a lower level of care. [ ]c) Behavioral symptoms (e.g., agitation, somnolence, inappropriate behavior) are present, and are not manageable at a lower level of care. [ ]d) Patient cannot understand follow-up treatment and crisis plan. [ ]e) Provider and supports are sufficiently available at lower level of care. [ ]f) Patient can participate (e.g., verify absence of plan for harm) and is in needed of monitoring. The original [facility] content created by [facility] has been revised. The portions of the content which have been revised are identified through the use of italic text or in bold, and [facility] has neither reviewed nor approved the modified material. All other unmodified content is copyright [facility]. Please see references footnoted in the original [facility] edition 2017 Admit Criteria Met?: Yes
[2016-12-12] MEDS: Levothyroxine 0.075 Mg Tab PO SCH (06:35)
[2016-12-12] MEDS: INSULIN ASPART SLIDING SCALE 100 UNITS/ML UNIT SUBQ SCH ×4 (06:35→20:25)
[2016-12-12] MEDS: Multivitamin w/ Minerals Tab PO SCH (10:00)
[2016-12-12] MEDS: Aspirin 81mg Chewable Tab PO SCH (10:00)
--- NOTE | 2016-12-12 11:27 | Progress Notes ---
DATE: 12/12/2016 SUBJECTIVE: Case was discussed with staff of the patient, reviewed records. The patient continues to refuse medications. She is isolating herself. When I approach her to ask her why she is not taking medication and asked if there are any side effects, what medication she will take, she said that there are other things that she can do other than take medication, which is using certain beverages and food, but she would not tell me what they were, and I advised her that she is also diabetic and she needs to be on medication because of her high blood sugar and that she needs to be on medication. I asked her what medication she would take and listed to her all the medications that could be taken, she said "none of them." She continues to be delusional, paranoid, continues to believe we are trying to harm her with medication. She is unpredictable, impulsive, gets easily agitated. She is refusing lab work, refusing Accu-Cheks, refusing medication. I will be initiating a Riese and a 5250 hold on her and , we will continue to work with the patient in group therapy, milieu therapy, adjust medication as needed. She had an MRSA screen that was isolated and TSH within normal range. CBC was with low lymphocyte, the rest within normal range. Chemistry panel within normal range, low sodium at 135 and high blood sugar 134, the rest within normal range. We will continue to work with the patient in group therapy, milieu therapy, adjust the medication as needed. JOB# [id number]
[2016-12-13] MEDS: INSULIN ASPART SLIDING SCALE 100 UNITS/ML UNIT SUBQ SCH ×4 (06:48→21:16)
[2016-12-13] MEDS: Levothyroxine 0.075 Mg Tab PO SCH (06:49)
[2016-12-13] MEDS: Multivitamin w/ Minerals Tab PO SCH (08:10)
[2016-12-13] MEDS: Aspirin 81mg Chewable Tab PO SCH (08:10)
--- NOTE | 2016-12-13 21:09 | Progress Notes ---
DATE: 12/13/2016 Case was discussed with staff of the patient, reviewed records. The patient continues to refuse medication, refuse Accu-Chek. The patient did get her lab work upon admission. Continues to be unpredictable, impulsive, and needing redirection. Continues to have poor insight. Unable to make safe plan for self-care. When I talked to her today, she would not answer any of my questions. When I talked to her about medication why she is not taking it, if there is any problem, , she would not answer any of my questions at all, so we are pursuing a Riese hearing, waiting for the scheduling, and we will continue to work with the patient in group therapy, milieu therapy, and adjust medication as needed. JOB# [id number]
[2016-12-14] MEDS: Levothyroxine 0.075 Mg Tab PO SCH (06:34)
[2016-12-14] MEDS: INSULIN ASPART SLIDING SCALE 100 UNITS/ML UNIT SUBQ SCH ×4 (06:34→21:16)
[2016-12-14] MEDS: Multivitamin w/ Minerals Tab PO SCH (09:36)
[2016-12-14] MEDS: Aspirin 81mg Chewable Tab PO SCH ×2 (09:37→18:01)
--- NOTE | 2016-12-14 20:32 | Progress Notes ---
DATE: 12/14/2016 SUBJECTIVE: Case was discussed with staff of the patient, reviewed records. The patient continues to refuse to take medication; however, she did have a shower today, which is some progress, but she is still refusing medications on the ground of grave disability. Continues to be unpredictable, impulsive, needing redirection. Continues to have poor insight. When I talked to her about why she is not taking her medication, she said "I will never take any of these," so she would not give me any alternative or tell me why she is not taking them. We will continue to work with the patient in group therapy, milieu therapy, adjust medication as needed. A Riese will be scheduled soon with the patient. JOB# [id number]
[2016-12-15] MEDS: INSULIN ASPART SLIDING SCALE 100 UNITS/ML UNIT SUBQ SCH ×4 (07:03→21:16)
[2016-12-15] MEDS: Levothyroxine 0.075 Mg Tab PO SCH (07:04)
[2016-12-15] MEDS: Aspirin 81mg Chewable Tab PO SCH (10:21)
[2016-12-15] MEDS: Multivitamin w/ Minerals Tab PO SCH (10:21)
--- NOTE | 2016-12-15 10:27 | Progress Notes ---
DATE: 12/15/2016 SUBJECTIVE: The patient seen, chart reviewed, discussed with staff. Coming in from [place]. Acting out, refusing her medications, agitated, hard to redirect, trying to hit staff. On [id number], the patient not answering me whatsoever, refusing interview. Dr. Huff is seeing this patient. Continuing to note that she refuses to take her medications, still refusal of care, grave disability, unpredictable, impulsive, refusing to take medications without any rationale. ASSESSMENT: The patient remains symptomatic, refusing care, impulsive, unpredictable. PLAN: We will continue to monitor. We will continue to encourage medication compliance, but the patient remains symptomatic and not safe for discharge at this time. [facility]# [id number]
--- NOTE | 2016-12-15 15:06 | General Progress Note ---
Subjective - Review of Systems Service Date: 12/14/16 Subjective: Late entry: Patient doing ok no reported concern per nursing staff Objective - Results Result Diagrams: 12/10/16 13:00 12/10/16 13:00 Recent Labs: Laboratory Last Values WBC 6.5 Th/cmm (4.8-10.8) 12/10/16 13:00 RBC 4.56 Mil/cmm (3.80-5.20) 12/10/16 13:00 Hgb 14.1 gm/dL (11.7-16.1) 12/10/16 13:00 Hct 42.3 % (35.0-45.0) 12/10/16 13:00 MCV 92.7 fl (81-100) 12/10/16 13:00 MCH 30.9 pg (27.0-31.0) 12/10/16 13:00 MCHC Differential 33.3 pg (28.0-36.0) 12/10/16 13:00 RDW 12.8 % (11.5-20.0) 12/10/16 13:00 Plt Count 252 Th/cmm (150-400) 12/10/16 13:00 MPV 8.1 fl 12/10/16 13:00 Neutrophils % 74.1 % (40.0-80.0) 12/10/16 13:00 Lymphocytes % 15.4 % (20.0-50.0) L 12/10/16 13:00 Monocytes % 8.0 % (2.0-10.0) 12/10/16 13:00 Eosinophils % 2.5 % (0.0-5.0) 12/10/16 13:00 Basophils % 0.0 % (0.0-2.0) 12/10/16 13:00 Sodium 135 mEq/L (136-145) L 12/10/16 13:00 Potassium 3.8 mEq/L (3.5-5.1) 12/10/16 13:00 Chloride 101 mEq/L (98-107) 12/10/16 13:00 Carbon Dioxide 29.5 mEq/L (21.0-31.0) 12/10/16 13:00 Anion Gap 8.3 (7.0-16.0) 12/10/16 13:00 BUN 23 mg/dL (7-25) 12/10/16 13:00 Creatinine 0.8 mg/dL (0.6-1.2) 12/10/16 13:00 Est GFR ( Amer) > 60.0 ml/min (>90) 12/10/16 13:00 Est GFR (Non-Af Amer) > 60.0 ml/min 12/10/16 13:00 BUN/Creatinine Ratio 28.8 12/10/16 13:00 Glucose 134 mg/dL (70-105) H 12/10/16 13:00 POC Glucose 97 MG/DL (70 - 105) 12/15/16 12:06 Calcium 9.7 mg/dL (8.6-10.3) 12/10/16 13:00 Total Bilirubin 0.4 mg/dL (0.3-1.0) 12/10/16 13:00 AST 16 U/L (13-39) 12/10/16 13:00 ALT 14 U/L (7-52) 12/10/16 13:00 Alkaline Phosphatase 89 U/L (34-104) 12/10/16 13:00 Troponin I 0.01 ng/mL (0.01-0.05) 12/10/16 13:00 Total Protein 7.4 gm/dL (6.0-8.3) 12/10/16 13:00 Albumin 4.2 gm/dL (3.7-5.3) 12/10/16 13:00 Globulin 3.2 gm/dL 12/10/16 13:00 Albumin/Globulin Ratio 1.3 (1.0-1.8) 12/10/16 13:00 TSH 2.76 uIU/ml (0.34-5.60) 12/10/16 13:00 RPR NONREACTIVE (NONREACTIVE) 12/10/16 13:00 - Physical Exam Vitals and I&O: Vital Signs Temp 96.6 F 12/15/16 06:16 Pulse 55 12/15/16 10:40 Resp 18 12/15/16 10:40 BP 124/50 12/15/16 10:22 Pulse Ox 99 12/15/16 06:16 Intake & Output 12/14/16 12/15/16 12/15/16 18:59 06:59 18:59 Intake Total 1200 Balance 1200 Intake: Oral 1200 Other: # Bowel Movements 1 Stool Characteristics Soft Formed Active Medications: Current Medications Acetaminophen (Tylenol) 650 mg PO Q4HR PRN PRN Reason: Pain Stop: 02/08/17 15:33 Ascorbic Acid (Vitamin C) 500 mg PO DAILY [facility] Stop: 02/09/17 08:59 Last Admin: 12/15/16 10:21 Dose: 500 mg Aspirin (Aspirin Chewable) 81 mg PO DAILY [facility] Stop: 02/09/17 08:59 Last Admin: 12/15/16 10:21 Dose: 81 mg Benazepril HCl (Lotensin) 20 mg PO DAILY [facility] Stop: 02/09/17 08:59 Last Admin: 12/15/16 10:22 Dose: Not Given Docusate Sodium (Colace) 100 mg PO BID [facility] Stop: 02/08/17 16:59 Last Admin: 12/15/16 12:15 Dose: Not Given Haloperidol (Haldol) 2 mg PO BID [facility] PRN Reason: Protocol Stop: 02/09/17 16:59 Last Admin: 12/15/16 10:20 Dose: 2 mg Haloperidol Decanoate (Haldol Dec) 25 mg IM [id number] [facility] PRN Reason: Protocol Stop: 02/09/17 15:59 Last Admin: 12/11/16 18:03 Dose: Not Given Insulin Aspart (Novolog Insulin Sliding Scale) 0 units SUBQ ACHS [facility] PRN Reason: Protocol Stop: 02/08/17 16:29 Last Admin: 12/15/16 12:15 Dose: Not Given Levothyroxine Sodium (Synthroid) 0.075 mg PO QDAC [facility] Stop: 02/09/17 07:29 Last Admin: 12/15/16 07:04 Dose: Not Given Lorazepam (Ativan) 0.5 mg PO Q6HR PRN; Protocol PRN Reason: Anxiety Stop: 02/08/17 15:41 Magnesium Hydroxide (Milk Of Magnesia) 30 ml PO DAILY PRN PRN Reason: Constipation Stop: 02/08/17 15:36 Metformin HCl (Glucophage) 500 mg PO BIDWM [facility] Stop: 02/08/17 17:59 Last Admin: 12/15/16 10:38 Dose: Not Given Mupirocin (Bactroban Oint) 1 appl NS BID [facility] Stop: 12/19/16 08:59 Last Admin: 12/15/16 10:23 Dose: 1 appl Simvastatin (Zocor) 40 mg PO HS [facility] PRN Reason: Protocol Stop: 02/08/17 20:59 Last Admin: 12/14/16 21:16 Dose: Not Given Zolpidem Tartrate (Ambien) 5 mg PO HS PRN PRN Reason: Insomnia Stop: 02/08/17 15:45 Other physical findings: Patient refused to be examined Assessment/Plan - Problem List Patient Problems: All Active Problems INCREASED AGITATION AND UNCOOPERATIVE (Acute) Diabetes (Acute) E11.9 HTN (hypertension) (Acute) I10 Psychosis (Acute) F29 - Assessment Assessment: DM II HTN HYPERLIPIDEMIA HYPOTHYROIDISM PSYCH DISORDER - Plan Plan: Medical problems are stable Continue current meds Psych follow up Nutritional Asmnt/Malnutr-PDOC - Dietary Evaluation Malnutrition Findings (Please click <Entered> for more info): Nutritional Asmnt/Malnutrition Start: 12/13/16 12: 35 Text: Status: Complete Freq: Document 12/13/16 12:35 GSUN (Rec: 12/13/16 12:52 GSUN [email or web address]) Nutritional Asmnt/Malnutrition Patient General Information Nutritional Screening Moderate Risk Screening Diagnosis Chronic paranoid schizophrenia Pertinent Medical Hx/Surgical Hx HTN, DM, hypothyroidism, hyperlipidemia Subjective Information 71 year old female from SNF. Pt was awake, selectively responded. Pt denied being diabetic. Pt reported usually good appetite. RD noted pt's food preferences. Pt did not provide other meaningful responses. Pt apepared overweight, no muscle/fat wasting noted. Avg PO intake 57% of past 7 meals, meeting 75% lower end kcal needs. RD enocurgaed PO intake, pt stared blankly back. Current Diet Order/ Nutrition Support HAILEE, CCHO, low fat, low choelsterol Pertinent Medications Vitamin C, Colace, Haldol, Novolog, MOM, Synthroid, Glucophage Pertinent Labs 12/10: glucose 134H 8/3: no new labs, no accuchecks. Dx DM Nutritional Hx/Data Height 1.6 m Height (Calculated Centimeters) 160.0 Current Weight (lbs) 66.996 kg Weight (Calculated Kilograms) 67.0 Weight (Calculated Grams) 87027.6 Davy Body Weight 115 Weight Status Overweight GI Symptoms Cultural/Ethnic/Taoism Belief Pt likes apples and teresita. " The main diet stops me from dying," RD asked pt several times to eleborate, pt did not . Skin Integrity/Comment: Christopher 19. Coccyx redness. Current %PO Fair (50-74%) Estimated Nutritional Goals Calories/Kcals/Kg IBW 115lb/52.3kg Kcals Calculated 1308-1569kcal (25-30kcal/kg) Protein Calculated 52g (1g/kg) Fluid: ml 1308-1569ml (1ml/kcal) Nutritional Problem 1. Problem Problem Inadequate oral food beverage intake related to Etiology unknwon etiology, likely cognition aeb Signs/Symptoms: PO itnake meeting 75% of lower end of kcal needs Intervention/Recommendation Comments 1. Continue with current diet order. Avg PO intake meeting 75% of lwoer end kcal needs. RD encouraged PO intake. Nursing staff to supervise and encourage PO intake. 2. Recommend glucose/ accuchecks, dx DM. Expected Outcomes/Goals Expected Outcomes/Goals 1. PO intake to meet at least 75% of estimated nutritional needs.
[2016-12-16] MEDS: INSULIN ASPART SLIDING SCALE 100 UNITS/ML UNIT SUBQ SCH ×2 (06:44→21:00)
[2016-12-16] MEDS: Levothyroxine 0.075 Mg Tab PO SCH (06:45)
[2016-12-16] MEDS: Aspirin 81mg Chewable Tab PO SCH (10:22)
[2016-12-16] MEDS: Multivitamin w/ Minerals Tab PO SCH (10:23)
--- NOTE | 2016-12-16 19:57 | Progress Notes ---
DATE: 12/16/2016 SUBJECTIVE: The patient was seen, chart reviewed, discussed with staff. The patient remains confused, disoriented, disorganized, crying at times for no reason and acting out, refusing medications at times. On [id number], the patient is refusing interview, refusing to answer me, not wanting to speak with me at all. Staff noting she remains disoriented, still cries at times, labile. ASSESSMENT: The patient remains symptomatic, poorly oriented, refusing care, refusing treatment, impulsive, and unpredictable, not safe for a lower level of care, and oppositional towards interview this morning. PLAN: We will continue to monitor. Continue to encourage med compliance. Given the severity of the patient's ongoing symptoms, she is not safe for discharge at this time. JOB# [id number]
[2016-12-17] MEDS: INSULIN ASPART SLIDING SCALE 100 UNITS/ML UNIT SUBQ SCH ×4 (06:41→21:01)
[2016-12-17] MEDS: Levothyroxine 0.075 Mg Tab PO SCH (06:43)
[2016-12-17] MEDS: Multivitamin w/ Minerals Tab PO SCH (13:43)
[2016-12-17] MEDS: Aspirin 81mg Chewable Tab PO SCH (13:43)
[2016-12-17] MEDS: Haloperidol Lactate 5 mg/mL 1mL Vial IM PRN (16:54)
--- NOTE | 2016-12-17 23:20 | Progress Notes ---
DATE: 12/17/2016 Case was discussed with staff of the patient, reviewed records, had Riese hearing today. The patient ____ under grave disability. The patient continues to be selectively mute, refusing all medication. Continues to be unpredictable, impulsive, paranoid. Continues to be unable to make safe plan for self-care. Sleeping well. She needs to be prompted to eat. She is noncompliant with the medication. I will initiating Haldol to be given IM, if she refuses p.o. and we will continue to work with the patient in group therapy, milieu therapy, and adjust medication as needed. JOB# [id number]
[2016-12-18] MEDS: INSULIN ASPART SLIDING SCALE 100 UNITS/ML UNIT SUBQ SCH ×4 (06:43→21:07)
[2016-12-18] MEDS: Levothyroxine 0.075 Mg Tab PO SCH (06:44)
[2016-12-18] MEDS: Aspirin 81mg Chewable Tab PO SCH (08:03)
[2016-12-18] MEDS: Multivitamin w/ Minerals Tab PO SCH (08:03)
--- NOTE | 2016-12-18 23:30 | Progress Notes ---
DATE: 12/18/2016 Case was discussed with staff of the patient. The patient was ____ yesterday. So, now she is getting medications by injection for her own medication. She continues to be internally preoccupied. Continues to need direction. Unable to participate in meaningful conversation or make safe plan for self-care, unpredictable, impulsive, very poor insight. Sleeping well and needs to be prompted to eat, and we will continue to work with the patient in group therapy, milieu therapy, and adjust as needed. JOB# [id number]
[2016-12-19] MEDS: INSULIN ASPART SLIDING SCALE 100 UNITS/ML UNIT SUBQ SCH ×3 (06:39→20:21)
[2016-12-19] MEDS: Levothyroxine 0.075 Mg Tab PO SCH (06:39)
[2016-12-19] MEDS: Aspirin 81mg Chewable Tab PO SCH (10:01)
[2016-12-19] MEDS: Multivitamin w/ Minerals Tab PO SCH (10:03)
--- NOTE | 2016-12-19 22:06 | Progress Notes ---
DATE: 12/19/2016 Case was discussed with staff of the patient, reviewed records. The patient took her medication yesterday by mouth. She is still internally preoccupied with not participating in a meaningful conversation, unable to tell me why she was not taking her medications. ____ now she seems to have shown some progress. She is sleeping better, eating better. No side effects with the medication, no sedation, no nausea, no side effects, no extrapyramidal symptoms and we will continue to work with the patient in group therapy, milieu therapy, adjust the medication as needed. JOB# [id number]
[2016-12-20] MEDS: Levothyroxine 0.075 Mg Tab PO SCH (06:41)
[2016-12-20] MEDS: INSULIN ASPART SLIDING SCALE 100 UNITS/ML UNIT SUBQ SCH ×4 (07:18→20:37)
[2016-12-20] MEDS: Aspirin 81mg Chewable Tab PO SCH (09:34)
[2016-12-20] MEDS: Multivitamin w/ Minerals Tab PO SCH (09:35)
--- NOTE | 2016-12-21 01:22 | Progress Notes ---
DATE: 12/20/2016 SUBJECTIVE: Case was discussed with staff of the patient, reviewed records. The patient continues to isolate herself. Continues to be unpredictable, impulsive. Per staff report, she is taking her medication more often. No side effects, no sedation, no nausea, no extrapyramidal symptoms. We will continue to work with the patient in group therapy, milieu therapy, and adjust medication as needed. JOB# [id number]
[2016-12-21] MEDS: INSULIN ASPART SLIDING SCALE 100 UNITS/ML UNIT SUBQ SCH ×4 (06:38→21:08)
[2016-12-21] MEDS: Levothyroxine 0.075 Mg Tab PO SCH (06:38)
[2016-12-21] MEDS: Aspirin 81mg Chewable Tab PO SCH (08:57)
[2016-12-21] MEDS: Multivitamin w/ Minerals Tab PO SCH (08:58)
[2016-12-21] MEDS: Haloperidol Lactate 5 mg/mL 1mL Vial IM PRN (09:14)
--- NOTE | 2016-12-22 00:01 | Progress Notes ---
DATE: 12/21/2016 Case was discussed with staff of the patient. The patient has been more compliant with the medication; however, she still ____ not answering my question. Unable to participate in ____, make safe plan for self-care. Continues to have poor insight. No side effects with the medication, no sedation, no nausea, no extrapyramidal symptoms. We will continue the patient in group therapy, milieu therapy, adjust medication as needed. JOB# [id number]
[2016-12-22] MEDS: Levothyroxine 0.075 Mg Tab PO SCH (06:37)
[2016-12-22] MEDS: INSULIN ASPART SLIDING SCALE 100 UNITS/ML UNIT SUBQ SCH ×4 (06:38→21:03)
[2016-12-22] MEDS: Multivitamin w/ Minerals Tab PO SCH (09:23)
[2016-12-22] MEDS: Aspirin 81mg Chewable Tab PO SCH (09:23)
--- NOTE | 2016-12-22 21:59 | Progress Notes ---
DATE: 12/22/2016 The patient was seen, chart reviewed, and discussed with staff. The patient is currently Riese and has been taking her medications. She has, however, still been extremely confused with poor insight. Currently, denying any side effects to medications. We will continue the patient on a group and milieu therapy and adjust medications as needed. JOB# [id number]
[2016-12-23] MEDS: Levothyroxine 0.075 Mg Tab PO SCH (06:37)
[2016-12-23] MEDS: INSULIN ASPART SLIDING SCALE 100 UNITS/ML UNIT SUBQ SCH ×4 (06:38→20:57)
[2016-12-23] MEDS: Multivitamin w/ Minerals Tab PO SCH (08:44)
[2016-12-23] MEDS: Aspirin 81mg Chewable Tab PO SCH (08:45)
--- NOTE | 2016-12-23 21:57 | Progress Notes ---
DATE: 12/23/2016 SUBJECTIVE: The patient seen, chart reviewed, discussed with staff. The patient is not talking to me at this time, essentially refusing interview. The patient is under the care of Dr. Huff. She is currently in the hospital, acting out, refusing medications, agitated, impulsive, unpredictable, requiring a lot of prompting, redirection, and currently considered gravely disabled. Medications were reviewed. Labs were reviewed. No side effects noted. ASSESSMENT: The patient remains symptomatic, history of med refusals. The patient is not talking to me, resistant to interview, confused and disoriented. We will monitor and followup, coordinate care with social media analyst regarding safe discharge planing, and good psychiatric followup. [facility]# [id number]
[2016-12-24] MEDS: Levothyroxine 0.075 Mg Tab PO SCH (06:32)
[2016-12-24] MEDS: INSULIN ASPART SLIDING SCALE 100 UNITS/ML UNIT SUBQ SCH ×4 (06:57→21:03)
[2016-12-24] MEDS: Aspirin 81mg Chewable Tab PO SCH (08:46)
[2016-12-24] MEDS: Multivitamin w/ Minerals Tab PO SCH (08:46)
--- NOTE | 2016-12-24 19:02 | Progress Notes ---
DATE: 12/24/2016 Case was discussed with staff of the patient, reviewed records. The patient is feeling better. She is taking her medication. Did initiate Haldol Decanoate on her. She has been taking her medication, easier to redirect, no side effects, no sedation, no nausea, no extrapyramidal symptoms. We will continue with the patient in group therapy, milieu therapy, adjust medications. [facility]# [id number]
[2016-12-25] MEDS: INSULIN ASPART SLIDING SCALE 100 UNITS/ML UNIT SUBQ SCH ×4 (06:40→21:44)
[2016-12-25] MEDS: Levothyroxine 0.075 Mg Tab PO SCH (06:46)
[2016-12-25] MEDS: Multivitamin w/ Minerals Tab PO SCH (09:02)
[2016-12-25] MEDS: Aspirin 81mg Chewable Tab PO SCH (09:02)
--- NOTE | 2016-12-25 22:45 | Progress Notes ---
DATE: 12/25/2016 Case was discussed with staff of the patient, reviewed records. The patient has been more compliant with the medications able to carry on a conversation with 1 or 2 words. She is sleeping better, eating better. No side effects with the medication, no sedation, no nausea, no extrapyramidal symptoms. She seems to be showing progress and we will continue to work with the patient in group therapy, milieu therapy, and adjust the medications. JOB# [id number]
[2016-12-26] MEDS: INSULIN ASPART SLIDING SCALE 100 UNITS/ML UNIT SUBQ SCH ×4 (06:30→20:36)
[2016-12-26] MEDS: Levothyroxine 0.075 Mg Tab PO SCH (06:39)
[2016-12-26] MEDS: Aspirin 81mg Chewable Tab PO SCH (08:46)
[2016-12-26] MEDS: Multivitamin w/ Minerals Tab PO SCH (08:46)
--- NOTE | 2016-12-26 20:50 | Progress Notes ---
DATE: 12/26/2016 SUBJECTIVE: Case was discussed with staff of the patient, reviewed records. The patient has been compliant with all her medications. She seems to be showing progress in that aspect. She is able to feed herself. She is sleeping well, eating well; however, still unable to carry out a conversation. The only thing she told me today that she does not want to go to sleep, but she is unable to explain why She is, however, in general showing progress. No side effects with the medication, no sedation, no nausea, no extrapyramidal symptoms. We will continue to work with the patient in group therapy, milieu therapy, and adjust the medication as needed. JOB# [id number]
[2016-12-27] MEDS: INSULIN ASPART SLIDING SCALE 100 UNITS/ML UNIT SUBQ SCH ×2 (06:36→11:50)
[2016-12-27] MEDS: Levothyroxine 0.075 Mg Tab PO SCH (06:36)
[2016-12-27] MEDS: Aspirin 81mg Chewable Tab PO SCH (09:06)
[2016-12-27] MEDS: Multivitamin w/ Minerals Tab PO SCH (09:07)
--- NOTE | 2016-12-27 12:58 | Discharge Summary ---
DATE OF DISCHARGE: 12/27/2016 DATE OF DISCHARGE: 12/27/2016. IDENTIFYING INFORMATION: The patient is a 71-year-old female. HISTORY OF PRESENT ILLNESS: The patient is a well known patient here with a history of psychosis. The patient apparently became agitated, psychotic, refusing medications, so she was sent here right away. She had multiple prior admissions psychotic, agitated behavior. COURSE IN THE HOSPITAL: The patient was refusing her medications, so we have to put her on hold on Riese and the Riese was ____, so she was given Haldol 2 mg twice a day and also given Haldol Decanoate intramuscular every 4 weeks, with the first of being on 12/21/2016. The patient also was continued other medications including vitamin C, aspirin, Lotensin, insulin, levothyroxine, metformin, multivitamin, simvastatin. The patient progressively got better. She was no longer acting in any way psychotic. She was sleeping well, eating well. She was taking all her medications, so we felt the patient got appropriate level, and ready to go to a lesser level of care. CONDITION ON DISCHARGE: The patient was in good mood. FINAL DIAGNOSES: AXIS I: Chronic paranoid schizophrenia with acute exacerbation. MEDICAL DIAGNOSES: As per medical doctor, diabetes mellitus and hypertension. The patient will be going back to [place]. I will follow up with the patient there. EXPECTED OUTCOME: Stable if the patient complies with the above. [facility]# [id number]
== END 2016-12-27 14:45 | disposition home or self-care (01) | DRG 885 ==
LOC: ER 12:46 → GERO 14:02
PROVIDERS: ADMIT Psychiatry & Neurology Psychiatry; ATTEND Psychiatry & Neurology Psychiatry
DX: F20.0 Paranoid schizophrenia (principal); F03.90 Unspecified dementia, unspecified severity, without behavioral disturbance, psychotic disturbance, mood disturbance, and anxiety; E11.9 Type 2 diabetes mellitus without complications; I10 Essential (primary) hypertension; E78.5 Hyperlipidemia, unspecified; E03.9 Hypothyroidism, unspecified; F31.9 Bipolar disorder, unspecified
CPT/HCPCS: 36415-UA; 71010-TC; 80053-TC; 82948-90; 84443-TC; 84484-TC; 85025-TC; 86592-TC; 93005; J1630; J1631; J1815; Z7610